=== PATIENT | female | born 1975 | race Two or more races ===

== ENCOUNTER → 2017-08-27 14:01 | Outpatient (CLI) | payer OTHER ==
[~2017-08-27] VITALS: Ht 152.4 cm; Wt 72.6 kg
[~2017-08-27 14:01] MED LIST: ATARAX25 MG PO; CATAFLAM50 MG PO; FLEXERIL10 MG PO; GILTUSS TR TAB1 EACH PO; LOTRISONE CREAM45 GM TOP; MEDROL4 MG PO; NIZORAL120 ML TOP; NO TOMA MEDICAMENTOS; PROVENTIL3 ML/2.5 M IH; TESSALON PERLE100 M1 PO; TRAMADOL HCL-AP1 TAB PO; TUSSI PRES-B L120 M1 PO; ZITHROMAX TRI-500 MG PO; ZITHROMAX500 MG PO; ZYRTEC10 MG PO
== END | disposition home or self-care (01) ==
LOC: PPHC 14:01
DX: R21 Rash and other nonspecific skin eruption (principal); L20.89 Other atopic dermatitis

== ENCOUNTER → 2017-09-18 | Outpatient (CLI) | payer OTHER ==
[~2017-09-18] VITALS: Ht 152.4 cm; Wt 72.6 kg
== END | disposition home or self-care (01) ==
LOC: PPHC 10:47
DX: R42 Dizziness and giddiness (principal)

== ENCOUNTER 2018-02-24 14:04 | Outpatient (CLI) | payer OTHER | END 2018-02-24 14:10 | disposition home or self-care (01) | LOC: LAB 14:04 | DX: N39.0 Urinary tract infection, site not specified (principal) ==

== ENCOUNTER 2018-03-17 12:00 | Outpatient (CLI) | payer OTHER | END 2018-03-18 07:28 | disposition home or self-care (01) | LOC: RAD 12:00 | DX: M54.16 Radiculopathy, lumbar region (principal) ==

== ENCOUNTER 2018-03-22 12:14 | Outpatient (CLI) | payer OTHER | END 2018-03-22 12:15 | disposition home or self-care (01) | LOC: LAB 12:14 | DX: R50.9 Fever, unspecified (principal) ==

== ENCOUNTER 2018-03-24 11:47 | Outpatient (CLI) | payer OTHER | END 2018-03-24 11:52 | disposition home or self-care (01) | LOC: LAB 11:47 | DX: B34.8 Other viral infections of unspecified site (principal) ==

== ENCOUNTER 2018-03-27 08:18 | Emergency (ER) | payer OTHER ==
[~2018-03-27] VITALS: Ht 162.6 cm; Wt 77.1 kg
== END 2018-03-27 12:50 | disposition home or self-care (01) ==
LOC: ER 08:18
DX: M94.0 Chondrocostal junction syndrome [Tietze] (principal)

== ENCOUNTER 2018-04-06 13:29 | Emergency (ER) | payer OTHER ==
[~2018-04-06] VITALS: Ht 162.6 cm; Wt 77.1 kg
== END 2018-04-06 17:19 | disposition home or self-care (01) ==
LOC: ER 13:29
DX: S83.91XA Sprain of unspecified site of right knee, initial encounter (principal); W10.8XXA Fall (on) (from) other stairs and steps, initial encounter; Y93.89 Activity, other specified; Y92.89 Other specified places as the place of occurrence of the external cause; Y99.8 Other external cause status

== ENCOUNTER 2018-11-15 09:10 | Outpatient (CLI) | payer OTHER | END 2018-11-15 09:37 | disposition home or self-care (01) | LOC: LAB 09:10 | DX: E78.49 Other hyperlipidemia (principal); T78.1XXA Other adverse food reactions, not elsewhere classified, initial encounter; I10 Essential (primary) hypertension; E07.89 Other specified disorders of thyroid; M25.50 Pain in unspecified joint ==

== ENCOUNTER 2018-11-25 12:34 | Outpatient (CLI) | payer OTHER | END 2018-11-25 12:40 | disposition home or self-care (01) | LOC: LAB 12:34 | DX: Z11.3 Encounter for screening for infections with a predominantly sexual mode of transmission (principal) ==

== ENCOUNTER 2019-06-19 08:32 | Outpatient (CLI) | payer OTHER | END 2019-06-19 15:00 | disposition home or self-care (01) | LOC: LAB 08:32 | DX: E78.49 Other hyperlipidemia (principal); E55.9 Vitamin D deficiency, unspecified; R42 Dizziness and giddiness; Z00.00 Encounter for general adult medical examination without abnormal findings; J11.1 Influenza due to unidentified influenza virus with other respiratory manifestations; J20.0 Acute bronchitis due to Mycoplasma pneumoniae ==

== ENCOUNTER 2019-08-23 11:31 | Outpatient (CLI) | payer OTHER | END 2019-08-23 15:00 | disposition home or self-care (01) | LOC: LAB 11:31 | DX: J11.1 Influenza due to unidentified influenza virus with other respiratory manifestations (principal) ==

== ENCOUNTER 2020-08-12 09:30 | Outpatient (CLI) | payer OTHER | END 2020-08-12 09:38 | disposition home or self-care (01) | LOC: LAB 09:30 | PROVIDERS: ATTEND General Practice | DX: Z11.3 Encounter for screening for infections with a predominantly sexual mode of transmission (principal); J02.8 Acute pharyngitis due to other specified organisms; R05 Cough ==

== ENCOUNTER 2020-09-10 07:24 | Outpatient (CLI) | payer OTHER | END 2020-09-10 07:28 | disposition home or self-care (01) | LOC: LAB 07:24 | DX: E13.69 Other specified diabetes mellitus with other specified complication (principal) ==

== ENCOUNTER → 2020-09-25 | Outpatient (CLI) | payer OTHER | END | disposition home or self-care (01) | LOC: MAMO-SONO 11:51 | PROVIDERS: ATTEND Obstetrics & Gynecology | DX: R10.2 Pelvic and perineal pain (principal); N84.0 Polyp of corpus uteri; N64.59 Other signs and symptoms in breast ==

== ENCOUNTER 2021-01-15 11:38 | Emergency (ER) | payer OTHER ==
[~2021-01-15] VITALS: Ht 162.6 cm; Wt 81.6 kg
[2021-01-15] MEDS ORDERED: KETO10TA2 PO (13:43)
== END 2021-01-15 14:16 | disposition home or self-care (01) ==
LOC: ER 11:38
DX: S60.221A Contusion of right hand, initial encounter (principal); W22.8XXA Striking against or struck by other objects, initial encounter; Y93.89 Activity, other specified; Y92.69 Other specified industrial and construction area as the place of occurrence of the external cause; Y99.8 Other external cause status

== ENCOUNTER 2021-05-12 08:00 | Outpatient (CLI) | payer OTHER ==
[~2021-05-12 08:00] MED LIST changes: +KETO10TA2 PO
== END 2021-05-12 08:30 | disposition home or self-care (01) ==
LOC: PPH VACUNA 08:00
PROVIDERS: ATTEND Emergency Medicine Pediatric Emergency Medicine
DX: Z23 Encounter for immunization (principal)

== ENCOUNTER 2021-06-26 05:02 | Emergency (ER) | payer OTHER ==
[~2021-06-26] VITALS: Ht 162.6 cm; Wt 81.6 kg
[2021-06-26] MEDS ORDERED: ORPHENADRINE C100 MG PO (06:38)
[2021-06-26] MEDS ORDERED: KETO10TA2 PO (06:38)
== END 2021-06-26 06:42 | disposition home or self-care (01) ==
LOC: ER 05:02
DX: S13.9XXA Sprain of joints and ligaments of unspecified parts of neck, initial encounter (principal); W22.8XXA Striking against or struck by other objects, initial encounter; Y92.89 Other specified places as the place of occurrence of the external cause

== ENCOUNTER 2021-09-02 13:42 | Outpatient (CLI) | payer OTHER ==
[~2021-09-02 13:42] MED LIST changes: +ORPHENADRINE C100 MG PO
== END 2021-09-02 13:43 | disposition home or self-care (01) ==
LOC: LAB 13:42
DX: Z03.818 Encounter for observation for suspected exposure to other biological agents ruled out (principal)

== ENCOUNTER 2021-09-07 18:36 | Emergency (ER) | payer OTHER ==
[~2021-09-07] VITALS: Ht 162.6 cm; Wt 81.6 kg
[2021-09-07] MEDS ORDERED: PROAIR HFA8.5 GM IH (18:44)
== END 2021-09-07 21:55 | disposition home or self-care (01) ==
LOC: ER 18:36
DX: J45.998 Other asthma (principal); R05.9 Cough, unspecified; Z03.818 Encounter for observation for suspected exposure to other biological agents ruled out

== ENCOUNTER 2021-09-24 14:50 | Outpatient (CLI) | payer OTHER ==
[~2021-09-24 14:50] MED LIST changes: +PROAIR HFA8.5 GM IH
== END 2021-09-24 14:54 | disposition home or self-care (01) ==
LOC: RAD 14:50
PROVIDERS: ATTEND Internal Medicine Critical Care Medicine
DX: R05.9 Cough, unspecified (principal)

== ENCOUNTER 2022-05-06 11:00 | Emergency (ER) | payer OTHER ==
[~2022-05-06] VITALS: Ht 162.6 cm; Wt 81.6 kg
[2022-05-06] MEDS ORDERED: AMOX-CLAV 875-1 EACH PO (13:54)
[2022-05-06] MEDS ORDERED: NORFLEX100MG PO (14:02)
[2022-05-06] MEDS ORDERED: KETO10TA2 PO (14:02)
== END 2022-05-06 14:04 | disposition home or self-care (01) ==
LOC: ER 11:00
DX: S61.220A Laceration with foreign body of right index finger without damage to nail, initial encounter (principal); W45.0XXA Nail entering through skin, initial encounter; Y93.9 Activity, unspecified; Y92.9 Unspecified place or not applicable; Z91.040 Latex allergy status; Z91.013 Allergy to seafood; Z91.018 Allergy to other foods; J45.909 Unspecified asthma, uncomplicated

== ENCOUNTER 2022-05-26 08:51 | Outpatient (CLI) | payer OTHER ==
[~2022-05-26 08:51] MED LIST changes: +AMOX-CLAV 875-1 EACH PO; +NORFLEX100MG PO
== END 2022-05-26 08:57 | disposition home or self-care (01) ==
LOC: LAB 08:51
PROVIDERS: ATTEND General Practice
DX: Z00.00 Encounter for general adult medical examination without abnormal findings (principal); E78.5 Hyperlipidemia, unspecified; E55.9 Vitamin D deficiency, unspecified; N39.0 Urinary tract infection, site not specified; R42 Dizziness and giddiness; R10.9 Unspecified abdominal pain; R10.2 Pelvic and perineal pain; M25.60 Stiffness of unspecified joint, not elsewhere classified; R53.1 Weakness

== ENCOUNTER 2022-07-22 06:38 | Day surgery (SDC) | payer OTHER | END 2022-07-22 11:30 | disposition home or self-care (01) | LOC: AMB-ENDOS 06:38 | PROVIDERS: ATTEND Internal Medicine Gastroenterology | DX: Z12.11 Encounter for screening for malignant neoplasm of colon (principal); K57.90 Diverticulosis of intestine, part unspecified, without perforation or abscess without bleeding; Z20.822 Contact with and (suspected) exposure to COVID-19; Z91.040 Latex allergy status; Z91.018 Allergy to other foods ==

== ENCOUNTER 2022-09-07 07:45 | Outpatient (CLI) | payer OTHER ==
[2022-09-08] MEDS ORDERED: ZYRTEC10 M3 PO (10:00)
[2022-09-08] MEDS ORDERED: PROAIR RESPICL90 MCG IH (10:00)
== END 2022-09-07 07:46 | disposition home or self-care (01) ==
LOC: LAB 07:45
PROVIDERS: ATTEND Surgery
DX: I10 Essential (primary) hypertension (principal); Z20.822 Contact with and (suspected) exposure to COVID-19; D64.9 Anemia, unspecified; D68.9 Coagulation defect, unspecified; N39.0 Urinary tract infection, site not specified; E11.00 Type 2 diabetes mellitus with hyperosmolarity without nonketotic hyperglycemic-hyperosmolar coma (NKHHC); E04.1 Nontoxic single thyroid nodule; E78.2 Mixed hyperlipidemia

== ENCOUNTER 2022-09-11 07:28 | Day surgery (SDC) | payer OTHER ==
[~2022-09-11 07:28] MED LIST changes: +PROAIR RESPICL90 MCG IH; +ZYRTEC10 M3 PO
== END 2022-09-11 23:05 | disposition home or self-care (01) ==
LOC: CIR.AMB 07:28
PROVIDERS: ATTEND Surgery
DX: D24.2 Benign neoplasm of left breast (principal); N60.92 Unspecified benign mammary dysplasia of left breast; N60.32 Fibrosclerosis of left breast; N60.82 Other benign mammary dysplasias of left breast; Z91.013 Allergy to seafood; Z91.018 Allergy to other foods
CPT/HCPCS: 19301; 19281; L8699

== ENCOUNTER 2023-02-05 12:45 | Emergency (ER) | payer OTHER ==
[~2023-02-05] VITALS: Ht 162.6 cm; Wt 74.8 kg
== END 2023-02-05 14:05 | disposition home or self-care (01) ==
LOC: ER 12:45
DX: T22.012A Burn of unspecified degree of left forearm, initial encounter (principal); X11.8XXA Contact with other hot tap-water, initial encounter; Y93.89 Activity, other specified; Y92.89 Other specified places as the place of occurrence of the external cause; Z91.040 Latex allergy status; Z91.013 Allergy to seafood; Z91.018 Allergy to other foods; J45.909 Unspecified asthma, uncomplicated

== ENCOUNTER 2023-06-16 17:52 | Emergency (ER) | payer OTHER ==
[~2023-06-16] VITALS: Ht 162.6 cm; Wt 81.6 kg
[2023-06-16 19:43] LABS: HEMATOCRIT 39.7 % (36.0-45.00); HEMOGLOBIN 13.7 g/dL (12.0-15.00); MEAN CELL VOLUME 86.4 fL (80.00-100.00); MEAN CORPUSCULAR HEMOGLOBIN 29.9 pg (27.00-32.0); MEAN CORPUSCULAR HGB CONC 34.6 g/dl (32.0-36.0); RED CELL DISTRIBUTION WIDTH 13.8 % (11.5-14.5)
[2023-06-16 20:27] LABS: PLATELET COUNT 103 K/uL (150-450)
== END 2023-06-16 21:49 | disposition home or self-care (01) ==
LOC: ER 17:52
PROVIDERS: General Practice
DX: J10.1 Influenza due to other identified influenza virus with other respiratory manifestations (principal); Z20.822 Contact with and (suspected) exposure to COVID-19; Z91.040 Latex allergy status; Z91.013 Allergy to seafood; Z91.018 Allergy to other foods

== ENCOUNTER 2023-07-19 09:41 | Outpatient (CLI) | payer OTHER | END 2023-07-19 09:48 | disposition home or self-care (01) | LOC: MAMO-SONO 09:41 | PROVIDERS: ATTEND Surgery | DX: N60.11 Diffuse cystic mastopathy of right breast (principal); N60.12 Diffuse cystic mastopathy of left breast; Z12.31 Encounter for screening mammogram for malignant neoplasm of breast ==

== ENCOUNTER 2023-08-16 09:08 | Emergency (ER) | payer OTHER ==
[~2023-08-16] VITALS: Ht 162.6 cm; Wt 81.6 kg
[2023-08-16] MEDS ORDERED: DICLOFENAC SODI75 MG PO (10:56)
[2023-08-16] MEDS ORDERED: NORFLEX100MG PO (10:56)
== END 2023-08-16 11:30 | disposition home or self-care (01) ==
LOC: ER 09:09
DX: S49.81XA Other specified injuries of right shoulder and upper arm, initial encounter (principal); S89.81XA Other specified injuries of right lower leg, initial encounter; S79.811A Other specified injuries of right hip, initial encounter; W19.XXXA Unspecified fall, initial encounter; Y93.K1 Activity, walking an animal; Y92.89 Other specified places as the place of occurrence of the external cause; Y99.8 Other external cause status; Z91.013 Allergy to seafood; Z91.018 Allergy to other foods; Z91.040 Latex allergy status

== ENCOUNTER → 2023-09-22 08:36 | Outpatient (CLI) | payer OTHER ==
[~2023-09-22 08:36] MED LIST changes: +DICLOFENAC SODI75 MG PO
[2023-09-22 09:19] LABS: HEMATOCRIT 40.4 % (36.0-45.00); HEMOGLOBIN 13.4 g/dL (12.0-15.00); MEAN CELL VOLUME 89.1 fL (80.00-100.00); MEAN CORPUSCULAR HEMOGLOBIN 29.5 pg (27.00-32.0); MEAN CORPUSCULAR HGB CONC 33.1 g/dl (32.0-36.0); PLATELET COUNT 166 K/uL (150-450); RED BLOOD COUNT 4.54 M/uL (4.00-6.00); RED CELL DISTRIBUTION WIDTH 13.6 % (11.5-14.5)
[2023-09-22 09:27] LABS: PH,URINE 6.5 (5.0-8.0); URINE APPEARANCE Clear; URINE BILIRRUBIN Negative (NEGATIVE); URINE BLOOD Large; URINE COLOR Yellow; URINE GLUCOSE Negative (NEGATIVE); URINE LEUKOCYTE Trace; URINE NITRATE Negative; URINE PROTEIN Trace (NEGATIVE); URINE UROBILINOGEN 0.2 E.U./dl
[2023-09-22 09:31] LABS: URINE BACTERIA 35.2 uL (0.0-1933); URINE EPITHELIAL CELLS 48.9 uL (0.0-38.8); URINE RBC 20.1 uL (0.0-20.8)
[2023-09-22 10:15] LABS: ALBUMIN 3.8 gm/dL (3.4-5.0); BILIRUBIN TOTAL 1.18 mg/dL (0.3-1.2); BILIRUBIN,CONJUGATED 0.18 mg/dL (0.0-0.2); CALCIUM 9.2 mg/dL (8.5-10.1); CHOL HDL RATIO 5.6 (0-5.0); CREATININE SERUM 0.76 mg/dL (0.55-1.02); GFR 81.57; GLOBULINA 3.7 G/DL (2.4-3.5); POTASSIUM 4.09 mEq/L (3.5-5.1); T4 TOTAL 8.99 UG/DL (4.8-13.9); TOTAL PROTEIN 7.5 gm/dL (6.4-8.2)
[2023-09-22 10:16] LABS: TSH 0.463 uIU/mL (0.358-3.74)
[2023-09-22 11:20] LABS: CORTISOL 7.58 ug/dl; T3 TOTAL 1.03 ng/ml (0.846-2.02)
[2023-09-22 19:00] LABS: VITAMIN D3 25 HYDROXY 19.3 ng/ml (30-120)
== END | disposition home or self-care (01) ==
LOC: LAB 08:36
PROVIDERS: ATTEND General Practice
DX: E78.5 Hyperlipidemia, unspecified (principal); Z00.00 Encounter for general adult medical examination without abnormal findings; E55.9 Vitamin D deficiency, unspecified; N39.0 Urinary tract infection, site not specified; R42 Dizziness and giddiness; R10.9 Unspecified abdominal pain; Z73.3 Stress, not elsewhere classified

== ENCOUNTER 2023-09-23 08:32 | Outpatient (CLI) | payer OTHER | END 2023-09-23 08:36 | disposition home or self-care (01) | LOC: SONOGRAMA 08:32 | PROVIDERS: ATTEND General Practice | DX: R22.1 Localized swelling, mass and lump, neck (principal) ==

== ENCOUNTER 2023-10-06 13:27 | Outpatient (CLI) | payer OTHER | END 2023-10-06 13:36 | disposition home or self-care (01) | LOC: SONOGRAMA 13:27 | PROVIDERS: ATTEND Obstetrics & Gynecology | DX: N94.0 Mittelschmerz (principal); R10.2 Pelvic and perineal pain; N94.89 Other specified conditions associated with female genital organs and menstrual cycle; R31.9 Hematuria, unspecified ==

== ENCOUNTER 2024-06-15 11:34 | Emergency (ER) | payer OTHER ==
[~2024-06-15] VITALS: Ht 162.6 cm; Wt 81.6 kg
[2024-06-15] MEDS ORDERED: ORPHENADRINE CITRATE 30 MG/ML AMPUL IM ONE (12:00)
[2024-06-15] MEDS ORDERED: KETOROLAC TROMETHAMINE 60 MG VIAL IM ONE (12:00)
[2024-06-15] MEDS ORDERED: NORFLEX100MG PO (14:37)
== END 2024-06-15 15:02 | disposition home or self-care (01) ==
LOC: ER 11:34
DX: S29.8XXA Other specified injuries of thorax, initial encounter (principal); W18.39XA Other fall on same level, initial encounter; Y93.89 Activity, other specified; Y92.89 Other specified places as the place of occurrence of the external cause; Y99.8 Other external cause status; Z91.013 Allergy to seafood; Z91.018 Allergy to other foods; Z91.040 Latex allergy status

== ENCOUNTER 2024-10-18 13:43 | Outpatient (CLI) | payer OTHER | END 2024-10-18 13:44 | disposition home or self-care (01) | LOC: MAMO-SONO 13:43 | PROVIDERS: ATTEND Obstetrics & Gynecology | DX: N63 Unspecified lump in breast (principal); N64.59 Other signs and symptoms in breast; N64.9 Disorder of breast, unspecified; R10.2 Pelvic and perineal pain ==

== ENCOUNTER 2024-10-20 09:28 | Outpatient (CLI) | payer OTHER ==
[2024-10-20 11:01] LABS: HEMATOCRIT 40.9 % (36.0-45.00); HEMOGLOBIN 13.9 g/dL (12.0-15.00); MEAN CELL VOLUME 88.4 fL (80.00-100.00); PLATELET COUNT 139 K/uL (150-450); RED BLOOD COUNT 4.62 M/uL (4.00-6.00)
[2024-10-20 11:38] LABS: URINE APPEARANCE Clear; URINE BILIRRUBIN Negative (NEGATIVE); URINE BLOOD Negative; URINE COLOR Yellow; URINE GLUCOSE Negative (NEGATIVE); URINE KETONE Negative (NEGATIVE); URINE LEUKOCYTE Negative; URINE NITRATE Negative; URINE PROTEIN Negative (NEGATIVE); URINE UROBILINOGEN 0.2 E.U./dl
[2024-10-20 11:43] LABS: ALBUMIN 3.9 gm/dL (3.4-5.0); BILIRUBIN TOTAL 1.48 mg/dL (0.3-1.2); CALCIUM 9.2 mg/dL (8.5-10.1); CHOL HDL RATIO 5.8 (0-5.0); CREATININE SERUM 0.69 mg/dL (0.55-1.02); GFR 90.81; GLOBULINA 3.4 G/DL (2.4-3.5); POTASSIUM 4.1 mEq/L (3.5-5.1); T4 FREE 0.97 NG/ML (0.76-1.46); TOTAL PROTEIN 7.3 gm/dL (6.4-8.2); TSH 0.475 uIU/mL (0.358-3.74); URINE RBC 8.6 uL (0.0-20.8); URINE WBC 12.8 uL (0.0-23.2)
[2024-10-20 11:59] LABS: ob NEGATIVE (NEGATIVE)
== END 2024-10-20 09:35 | disposition home or self-care (01) ==
LOC: LAB 09:28
PROVIDERS: ATTEND Obstetrics & Gynecology
DX: Z00.00 Encounter for general adult medical examination without abnormal findings (principal); I10 Essential (primary) hypertension; E03.9 Hypothyroidism, unspecified; E78.00 Pure hypercholesterolemia, unspecified; N39.0 Urinary tract infection, site not specified; Z11.4 Encounter for screening for human immunodeficiency virus [HIV]; Z12.11 Encounter for screening for malignant neoplasm of colon; E55.9 Vitamin D deficiency, unspecified; Z21 Asymptomatic human immunodeficiency virus [HIV] infection status; R79.9 Abnormal finding of blood chemistry, unspecified; R79.89 Other specified abnormal findings of blood chemistry

== ENCOUNTER → 2025-06-29 07:50 | Outpatient (CLI) | payer OTHER ==
[2025-06-29 09:16] LABS: BASO % 0.2 % (0.1-1.2); EOS # 0.02 (0.04-0.54); EOS % 0.2 % (0.7-7.0); LYMPH # 2.28 (1.18-3.74); LYMPH % 18.2 % (19.3-53.1); MEAN PLATELET VOLUME 12.50 fl (9.4-12.4); MONO # 0.75 (0.24-0.82); MONO % 6.0 % (4.7-12.5); NEUT # 9.39 (1.56-6.13); NEUT % 75.2 % (34.0-71.1); RED CELL DISTRIBUTION WIDTH 13.1 % (11.6-14.4)
[2025-06-29 09:17] LABS: URINE APPEARANCE Turbid; URINE BILIRRUBIN Negative (NEGATIVE); URINE BLOOD Negative; URINE COLOR Dark Yellow; URINE GLUCOSE Negative (NEGATIVE); URINE KETONE Negative (NEGATIVE); URINE LEUKOCYTE Negative; URINE NITRATE Negative; URINE PROTEIN Trace (NEGATIVE); URINE UROBILINOGEN 0.2 E.U./dl
[2025-06-29 09:21] LABS: URINE BACTERIA 853.0 uL (0.0-1933); URINE EPITHELIAL CELLS 66.8 uL (0.0-38.8); URINE RBC 15.5 uL (0.0-20.8); URINE WBC 16.3 uL (0.0-23.2)
[2025-06-29 09:55] LABS: URINE CAST 0.14 uL (0.0-1.40)
[2025-06-29 10:19] LABS: ALT/SGPT 41.0 U/L (12-78); AST/SGOT 15.0 U/L (15-37); BILIRUBIN TOTAL 1.14 mg/dL (0.3-1.2); BUN CREA RATIO 28.0 (7.0-25.0); CHOL HDL RATIO 5.9 (0-5.0); CREATININE SERUM 0.71 mg/dL (0.55-1.02); GFR 87.49; GLOBULINA 3.5 G/DL (2.4-3.5); GLUCOSE FASTING 99.0 mg/dL (65-100); HDL 40.0 mg/dl (40-60); LDL 164.0 mg/dl (0-130); OSMOLALITY SERUM 284.0 MOSM/KG (275-295); T3 UPTAKE 31.0 % (30-39); T4 TOTAL 7.47 UG/DL (4.8-13.9); TSH 0.438 uIU/mL (0.358-3.74); VLDL 32.0 (0-39)
== END | disposition home or self-care (01) ==
LOC: LAB 07:50
PROVIDERS: ATTEND Internal Medicine
DX: E03.9 Hypothyroidism, unspecified (principal); E78.9 Disorder of lipoprotein metabolism, unspecified; E55.9 Vitamin D deficiency, unspecified; G62.9 Polyneuropathy, unspecified; Z12.11 Encounter for screening for malignant neoplasm of colon; Z01.810 Encounter for preprocedural cardiovascular examination